=== PATIENT | male | born 1970 | race Caucasian/White ===

== ENCOUNTER 2025-02-03 00:38 | Emergency (ER) | payer MEDICAID, SELFPAY ==
[2025-02-03 00:39] VITALS: BP 174/106; PULSE 79; RESP 20; TEMP 36.2; O2SAT 97; BMI 30.4
[2025-02-03 01:45] LABS: Hematocrit 39.0 % (40-54); Hemoglobin 14.2 g/dL (13.0-16.5); Immature Granulocytes Count 0.040 X10^3/uL (0.0-0.0); Mean Corp Hgb Conc 36.4 g/dL (32-36); Mean Corpuscular Volume 89.7 fL (80-94); Mean Platelet Vol. 9.8 fl (6.2-12.0); NRBC Flagged by Analyzer 0 % (0-5); Platelet Count 222 K/mm3 (150-450); RBC Distribution Width CV 11.6 % (11.6-14.6); RBC Distribution Width SD 37.5 fl (35.1-43.9); Red Blood Count 4.35 M/mm3 (4.6-6.2); White Blood Count 7.4 K/mm3 (4.4-11.0)
[2025-02-03 01:49] VITALS: BP 166/101; PULSE 77; RESP 16; O2SAT 96
[2025-02-03 02:22] LABS: Alcohol, Blood (Medical)-Serum < 10.1 mg/dL (<=10.0); Anion Gap 11 (5-15); BUN 23 mg/dL (4-19); BUN/Creat Ratio 25.2 RATIO (10-20); Calcium,Total 8.8 mg/dL (7.6-11.0); Carbon Dioxide 24.2 mmol/L (21.0-32.0); Chloride 105 mmol/L (98-108); Estimated Creatinine Clearance 106.66 ml/min (50-250); Glucose 113 mg/dL (70-99); Potassium 3.8 mmol/L (3.3-5.1)
[2025-02-03 03:00] VITALS: BP 116/59; PULSE 66; RESP 16; TEMP 36.6; O2SAT 99
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
== END 2025-02-03 03:19 | disposition home or self-care (01) ==
LOC: ED 03:18
PROVIDERS: Emergency Provider Emergency Medicine; Visit Provider Emergency Medicine
DX: F32.A Depression, unspecified (principal)
CPT/HCPCS: 36415; 80048; 82077; 85025; 99282

== ENCOUNTER → 2025-02-11 | Outpatient (CLI) | payer MEDICAID, SELFPAY ==
[2025-02-11 18:57] LABS: Cholesterol 187 mg/dL (<=200)
[2025-02-11 19:01] LABS: AST(SGOT) 26 U/L (<=37); Alanine Aminotransfer ALT/SGPT 27 U/L (<=46); Albumin, Serum 4.7 g/dL (3.5-5.0); Alkaline Phosphatase 79 U/L (40-129); Anion Gap 11 (5-15); BUN 13 mg/dL (4-19); BUN/Creat Ratio 15.5 RATIO (10-20); Calcium,Total 9.5 mg/dL (7.6-11.0); Carbon Dioxide 29.2 mmol/L (21.0-32.0); Chloride 99 mmol/L (98-108); Globulin 2.1 g/dL (2.2-4.2); Glucose 146 mg/dL (70-99); Hepatitis C Antibody Nonreactive (Nonreactive); PSA,Total- Diagnostic 0.52 ng/mL (0.00-4.00); Potassium 3.9 mmol/L (3.3-5.1)
== END | disposition home or self-care (01) ==
LOC: VSLAB 14:40
PROVIDERS: PCP Family Medicine; Visit Provider Family Medicine
DX: Z00.01 Encounter for general adult medical examination with abnormal findings (principal)
CPT/HCPCS: 36415; 80053; 82465; 83718; 84153; 86803